=== PATIENT | female | born 1975 | race Caucasian/White ===

== ENCOUNTER 2016-10-22 09:47 | Outpatient (CLI) | payer BC ==
--- NOTE | 2016-10-22 12:12 | Mammography Report ---
BILATERAL MAMMOGRAM : HISTORY: Cancer screening. Comparison study is dated October 13, 2015. FINDINGS: The breast tissue is heterogeneously dense, which could obscure detection of small masses (approximately 50%-75% glandular). No mass, distortion, suspicious calcification, or skin change is seen. IMPRESSION: Negative mammogram. There is no mammographic evidence of malignancy. RECOMMENDATION: Follow-up per ACS guidelines. BI-RADS CATEGORY: 1 = Negative ACR BI-RADS MAMMOGRAPHIC CODES: 0 = Needs additional imaging evaluation; 1 = Negative; 2 = Benign; 3 = Probably benign; 4 = Suspicious; 5 = Malignant; 6 = Known biopsy-proven malignancy COMMENT: 1. Dense breast tissue, i.e., adenosis, fibrocystic changes, etc., may obscure an underlying neoplasm. 2. Approximately 10% of cancers are not detected with mammography. 3. A negative mammography report should not delay biopsy if a clinically suspicious mass is present. COMMENT: Patient follow-up letters are generated in [employer].
== END 2016-10-22 09:48 | disposition home or self-care (01) ==
LOC: MAMMO 09:47
PROVIDERS: ATTEND Obstetrics & Gynecology
DX: Z12.31 Encounter for screening mammogram for malignant neoplasm of breast (principal)
CPT/HCPCS: 77067; G0202

== ENCOUNTER 2016-12-20 11:03 | Emergency (ER) | payer BC ==
--- NOTE | 2016-12-20 11:37 | Emergency Department Report ---
Chief Complaint: Abdominal Pain Stated Complaint: ABD SWELLING /PAIN/VOMITTING/HEADACHE /BODY ACHE Time Seen by Provider: 12/20/16 11:29 - HPI History of Present Illness: 41-year-old female presents today for syncopal episode that occurred 2 days ago. The patient also complaining of abdominal pain and fullness 4 days. Complaining of general weakness, nausea, vomiting. Denies chest pain or shortness of breath. - ROS Review of Systems: Per HPI - Exam Vital Signs: Vital Signs 12/20/16 11:11 Temperature 98.4 F Pulse Rate 72 Respiratory 20 Rate Blood Pressure 135/81 O2 Sat by Pulse 100 Oximetry Physical Exam: General: A 41-year-old female in no acute distress. Well-developed, well- nourished. CV: Regular rate and rhythm. Lungs: Clear to auscultation bilaterally. Abdomen: No tenderness to palpation. No guarding or rebound tenderness. MSE screening note: Focused history and physical exam performed. Due to findings the following was ordered: ED Disposition for MSE Condition: Stable Instructions: Abdominal Pain (ED)
[2016-12-20 12:24] LABS: Basophils % (Auto) 0.7 % (0.0-1.8); Eosinophils % (Auto) 1.7 % (0.0-4.3); Hemoglobin 13.8 gm/dl (10.1-14.3); Mean Corpuscular HGB Conc 34 % (30-34); Mean Corpuscular Hemoglobin 30 pg (28-32); Mean Corpuscular Volume 90 fl (79-97); Platelet Count 247 K/mm3 (140-440); Red Blood Count 4.55 M/mm3 (3.65-5.03); Red Cell Distribution Width 13.5 % (13.2-15.2); White Blood Count 5.3 K/mm3 (4.5-11.0)
[2016-12-20 12:35] LABS: Amylase 58 units/L (27-131); Anion Gap 17 mmol/L; BUN/Creatinine Ratio 13.33; Blood Urea Nitrogen 8 mg/dL (7-17); Carbon Dioxide 25 mmol/L (22-30); Chloride 100.8 mmol/L (98-107); Glucose 100 mg/dL (65-100); Lipase 33 units/L (13-60); Potassium 4.2 mmol/L (3.6-5.0); Sodium 139 mmol/L (137-145)
[2016-12-20 16:53] LABS: Bilirubin,Urine NEG (Negative); Blood,Urine NEG (Negative); Ketones,Urine NEG (Negative); Leukocyte Esterase,Urine NEG (Negative); Mucus,Urine FEW /HPF; Nitrite,Urine NEG (Negative); Protein,Urine <15 mg/dL mg/dL (Negative)
[2016-12-20] MEDS ORDERED: NACL 0.9% 1000 ML 1,000 ML IV ONE (19:31)
[2016-12-20] MEDS ORDERED: ANTIVERT PO ONE (19:31)
[2016-12-20] MEDS ORDERED: ZOFRAN IV ONE (19:31)
--- NOTE | 2016-12-20 19:34 | Emergency Department Report ---
HPI - General Chief Complaint: Abdominal Pain Time Seen by Provider: 12/20/16 11:29 - HPI HPI: This is a 41-year-old female presents to the emergency department with complaint of upper abdominal pain, nausea and feeling "full" for the past 4 days. She also complains of a syncopal fall 2 days ago but she fell onto the couch and denies any trauma from that incident. She has some generalized dizziness that worsens when she is getting up to walk around. She denies any diarrhea or constipation but has not had a bowel movement in the past 2 days. She says that the discomfort is a burning sensation as well as some intermittent cramping. She is not taken anything for symptoms prior to presentation. No recent travel or sick contacts at home. She has a primary care doctor at a clinic but has not seen them regarding her symptoms. She has a surgical history of vaginal delivery 5 and a tubal ligation. ED Past Medical Hx - Past Medical History Additional medical history: Vaginal delivery x 5 - Surgical History Past Surgical History?: Yes Additional Surgical History: tubal ligation - Social History Smoking Status: Never Smoker Substance Use Type: Non Opiate Pain, Other - Medications Home Medications: Home Medications Medication Instructions Recorded Confirmed Last Taken Type Cefuroxime Axetil [Ceftin] 500 mg PO Q12H #20 tablet 01/20/14 Unknown Rx Ibuprofen [Motrin] 600 mg PO Q8H PRN #20 tablet 01/20/14 Unknown Rx Acetaminophen/Codeine [Tylenol #3] 1 tab PO Q6H PRN #20 tab 04/23/15 Unknown Rx Sulfamethoxazole/Trimethoprim 1 each PO BID #28 tablet 04/23/15 Unknown Rx [Bactrim DS TAB] metroNIDAZOLE [Flagyl] 500 mg PO BID #14 tablet 04/23/15 Unknown Rx Meclizine [Antivert] 12.5 mg PO BID PRN #16 tablet 12/20/16 Unknown Rx Ondansetron [Zofran Odt] 4 mg PO Q8HR PRN #10 tab.rapdis 12/20/16 Unknown Rx ED Review of Systems ROS: Stated complaint: ABD SWELLING /PAIN/VOMITTING/HEADACHE /BODY ACHE Other details as noted in HPI Comment: All other systems reviewed and negative Constitutional: denies: chills, fever Eyes: denies: eye pain, eye discharge, vision change ENT: denies: ear pain, throat pain Respiratory: denies: cough, shortness of breath, wheezing Cardiovascular: denies: chest pain, palpitations Gastrointestinal: abdominal pain, nausea Genitourinary: denies: urgency, dysuria, discharge Musculoskeletal: denies: back pain, joint swelling, arthralgia Skin: denies: rash, lesions Neurological: other (dizziness). denies: headache Physical Exam - Physical Exam Vital Signs: Vital Signs 12/20/16 11:11 Temperature 98.4 F Pulse Rate 72 Respiratory 20 Rate Blood Pressure 135/81 O2 Sat by Pulse 100 Oximetry Physical Exam: GENERAL: The patient is well-developed well-nourished. HEENT: Normocephalic. Atraumatic. Extraocular motions are intact. Patient has moist mucous membranes. Pupils equal reactive to light bilaterally. No nystagmus. Tongue is midline. NECK: Supple. Trachea is midline. CHEST/LUNGS: Clear to auscultation. There is no respiratory distress noted. HEART/CARDIOVASCULAR: Regular. There is no tachycardia. There is no gallop rub or murmur. ABDOMEN: Abdomen is soft, nontender. No guarding or rebound tenderness. Patient has normal bowel sounds. There is no abdominal distention. SKIN: There is no rash. There is no edema. There is no diaphoresis. NEURO: The patient is awake, alert, and oriented. The patient is cooperative. The patient has no focal neurologic deficits. The patient has normal speech and gait. Cranial nerves II through XII grossly intact. No pronator drift. No dysmetria. MUSCULOSKELETAL: There is no tenderness or deformity. There is no limitation range of motion. There is no evidence of acute injury. Muscle strength 5 out of 5 upper and lower extremity bilaterally. ED Course Vital Signs 12/20/16 11:11 Temperature 98.4 F Pulse Rate 72 Respiratory 20 Rate Blood Pressure 135/81 O2 Sat by Pulse 100 Oximetry ED Medical Decision Making - Lab Data Result diagrams: 12/20/16 12:05 12/20/16 12:05 - EKG Data -: EKG Interpreted by Me EKG shows normal: sinus rhythm, axis, intervals, QRS complexes, ST-T waves Rate: normal - EKG Data When compared to previous EKG there are: no significant change Interpretation: normal EKG, unchanged when compared t (09/25/12) - Radiology Data Radiology results: image reviewed interpreted by me: Chest x-ray did not show any acute process. Heart is normal shape and size. No effusions. No pneumothorax. No signs of pneumonia seen. X-ray of the abdomen shows some nonspecific nonobstructive bowel gas but otherwise no acute process. - Medical Decision Making 41-year-old female presents the emergency department with the complaints of some upper abdominal burning and some dizziness that appears to be a combination of vertigo and some near-syncope. However the dizziness and syncopal episode was 2 days ago. Patient's labs are unremarkable including no signs of infection in the blood or urine, electrolyte abnormalities, renal insufficiency or glucose abnormalities. She has normal belly labs. Negative troponin. EKG is normal without ST elevation TN, ischemia or dysrhythmia. Abdominal and chest x-rays did not show any acute process. Patient was given some IV fluid, Zofran for nausea and Antivert. Upon reevaluation she says she is feeling much better. She has good follow-up with primary care. She'll be discharged home with Zofran and Antivert. She will return to the ER with any worsening of her symptoms in any acute distress. - Differential Diagnosis vertigo, mi, colitis, gastritis, viral syndrome Critical Care Time: No Critical care attestation.: If time is entered above; I have spent that time in minutes in the direct care of this critically ill patient, excluding procedure time. ED Disposition Clinical Impression: Dizziness Abdominal pain Qualifiers: Abdominal location: upper abdomen, unspecified Qualified Code(s): R10.10 - Upper abdominal pain, unspecified Disposition: DISCHARGED TO HOME OR SELFCARE Is pt being admited?: No Condition: Good Instructions: Abdominal Pain (ED), Lightheadedness (ED), Dizziness (ED) Additional Instructions: Please follow-up with your primary care doctor in the next few days. Return to the emergency department with any worsening of your symptoms or any acute distress. Prescriptions: Meclizine [Antivert] 12.5 mg PO BID PRN #16 tablet PRN Reason: Vertigo Ondansetron [Zofran Odt] 4 mg PO Q8HR PRN #10 tab.rapdis PRN Reason: Nausea Referrals: PRIMARY CARE, [Primary Care Provider] - 3-5 Days Time of Disposition: 21:06
[2016-12-20 21:15] VITALS: BP 138/84
--- NOTE | 2016-12-21 09:20 | XRay Report ---
Abdominal series: History: Abdominal pain, syncope. Findings: Normal cardiomediastinal silhouette. No acute lung changes. No free intraperitoneal air. Stool in colon. No bowel distention or wall thickening. No radiopaque calculus or abnormal calcification. Essure device noted in the adnexa. Impression: Essentially negative abdomen.
== END 2016-12-20 21:52 | disposition home or self-care (01) ==
LOC: ED 11:03
DX: R10.10 Upper abdominal pain, unspecified (principal); R42 Dizziness and giddiness
CPT/HCPCS: 36415; 74022; 80048; 81001; 81025; 82150; 83690; 84484; 85025; 93005; 93010; 96361; 96374; 99284; J2405; J7030

== ENCOUNTER 2017-02-25 09:00 | Outpatient (CLI) | payer BC ==
--- NOTE | 2017-02-25 10:52 | Ultrasound Report ---
Left breast ultrasound: History: 2 weeks of left breast pain. Negative mammogram in October 2016. Imaging of the left breast in the area of concern ranging from the 12:00 to 3:00 positions shows no evidence of abnormal echo pattern or focal finding. Impression: Negative targeted left breast ultrasound. Recommendation: Clinical followup. Any additional evaluation at this time should be based on your concern. BI-RADS CATEGORY: 1 = Negative ACR BI-RADS MAMMOGRAPHIC CODES: 0 = Needs additional imaging evaluation; 1 = Negative; 2 = Benign; 3 = Probably benign; 4 = Suspicious; 5 = Malignant; 6 = Known biopsy-proven malignancy COMMENT: 1. Dense breast tissue, i.e., adenosis, fibrocystic changes, etc., may obscure an underlying neoplasm. 2. Approximately 10% of cancers are not detected with mammography. 3. A negative mammography report should not delay biopsy if a clinically suspicious mass is present.
== END 2017-02-25 09:01 | disposition home or self-care (01) ==
LOC: SPVWC 09:00
PROVIDERS: ATTEND Obstetrics & Gynecology
DX: N63 Unspecified lump in breast (principal)

== ENCOUNTER 2018-04-08 09:14 | Outpatient (CLI) | payer BC ==
--- NOTE | 2018-04-10 16:27 | Mammography Report ---
BILATERAL DIGITAL SCREENING MAMMOGRAM with CAD: 04/08/18 09:14:00 CLINICAL: Routine screening. COMPARISON:10/22/16 FINDINGS: The breasts are heterogeneously dense, which may obscure small masses. No mass, architectural distortion or suspicious calcifications. IMPRESSION: No mammographic evidence of malignancy. BI-RADS CATEGORY: 1 - - Negative RECOMMENDATION: Routine mammographic screening in one year. COMMENT: Patient follow-up letters are generated by our [employer] application.
== END 2018-04-08 09:15 | disposition home or self-care (01) ==
LOC: SPVWC 09:14
PROVIDERS: ATTEND Obstetrics & Gynecology
DX: Z12.31 Encounter for screening mammogram for malignant neoplasm of breast (principal)
CPT/HCPCS: 77067

== ENCOUNTER 2019-05-22 08:38 | Outpatient (CLI) | payer BC ==
--- NOTE | 2019-05-25 09:31 | Mammography Report ---
DIGITAL SCREENING MAMMOGRAM WITH CAD, 05/22/2019 INDICATION: Routine screening mammography. TECHNIQUE: Digital bilateral 2D mammography was obtained in the craniocaudal and mediolateral obliq ue projections. This examination was interpreted with the benefit of Computer-Aided Detection analysi s. COMPARISON: 10/22/2016 FINDINGS: Breast Density: The breasts are heterogeneously dense, which may obscure small masses. There is no evidence of dominant mass, suspicious calcifications or architectural distortion in eithe r breast. IMPRESSION: BI-RADS Category 1: Negative. No mammographic evidence of malignancy. Recommend routine screening m ammography in one year. A "normal" or negative report should not discourage follow up or biopsy of a clinically significant f inding. A written summary of these findings will be mailed to the patient. The patient will be entered into a mammography reporting system which will generate a reminder letter for the patient's next appointmen t at the appropriate interval. The [employer] recommends yearly mammograms starting at age 40 and continuing as l mariza as a woman is in good health. Breast MRI is recommended for women with an approximate 20-25% or greater lifetime risk of breast cancer, including women with a strong family history of breast or ova genie cancer or who have been treated for Hodgkin's disease. Signer Name: Mitch Squires MD Signed: 05/25/2019 9:27 AM Workstation Name: [id number]
== END 2019-05-22 08:39 | disposition home or self-care (01) ==
LOC: MAMMO 08:38
PROVIDERS: ATTEND Obstetrics & Gynecology
DX: Z12.31 Encounter for screening mammogram for malignant neoplasm of breast (principal)
CPT/HCPCS: 77067

== ENCOUNTER 2020-06-02 11:12 | Outpatient (CLI) | payer BC ==
--- NOTE | 2020-06-02 13:03 | Mammography Report ---
DIGITAL SCREENING MAMMOGRAM WITH CAD, 06/02/2020 INDICATION: Routine screening mammography. TECHNIQUE: Digital bilateral 2D mammography was obtained in the craniocaudal and mediolateral obliq ue projections. This examination was interpreted with the benefit of Computer-Aided Detection analysi s. COMPARISON: 05/22/2019, 04/08/2018 FINDINGS: Breast Density: The breasts are heterogeneously dense, which may obscure small masses. There is no evidence of dominant mass, suspicious calcifications or architectural distortion in eithe r breast. IMPRESSION: Follow up recommendation: Routine yearly BI-RADS Category 1: Negative. A "normal" or negative report should not discourage follow up or biopsy of a clinically significant f inding. A written summary of these findings will be mailed to the patient. The patient will be entered into a mammography reporting system which will generate a reminder letter for the patient's next appointmen t at the appropriate interval. The [employer] recommends yearly mammograms starting at age 40 and continuing as l mariza as a woman is in good health. Breast MRI is recommended for women with an approximate 20-25% or greater lifetime risk of breast cancer, including women with a strong family history of breast or ova genie cancer or who have been treated for Hodgkin's disease. Signer Name: Caden Alfred MD Signed: 06/02/2020 12:59 PM Workstation Name: [id number]
== END 2020-06-02 11:13 | disposition home or self-care (01) ==
LOC: MAMMO 11:12
PROVIDERS: ATTEND Obstetrics & Gynecology
DX: Z12.31 Encounter for screening mammogram for malignant neoplasm of breast (principal)
CPT/HCPCS: 77067

== ENCOUNTER 2021-07-04 13:55 | Outpatient (CLI) | payer BC ==
--- NOTE | 2021-07-04 15:59 | Mammography Report ---
DIGITAL SCREENING MAMMOGRAM WITH CAD, 07/04/2021 CLINICAL INFORMATION / INDICATION: Routine screening TECHNIQUE: Digital bilateral 2D mammography was obtained in the craniocaudal and mediolateral obliqu e projections. This examination was interpreted with the benefit of Computer-Aided Detection analysis . COMPARISON: 06/02/2020 FINDINGS: Breast Density: The breasts are heterogeneously dense, which may obscure small masses. No dominant mass, suspicious calcifications, or architectural distortion in either breast. IMPRESSION: No mammographic evidence of malignancy. Follow up recommendation: Routine yearly BI-RADS Category 1: Negative. A "normal" or negative report should not discourage follow up or biopsy of a clinically significant f inding. A written summary of these findings will be mailed to the patient. The patient will be entered into a mammography reporting system which will generate a reminder letter for the patient's next appointmen t at the appropriate interval. The [employer] recommends yearly mammograms starting at age 40 and continuing as l mariza as a woman is in good health. Breast MRI is recommended for women with an approximate 20-25% or greater lifetime risk of breast cancer, including women with a strong family history of breast or ova genie cancer or who have been treated for Hodgkin's disease. Signer Name: Mitch Squires MD Signed: 07/04/2021 3:54 PM Workstation Name: [id number]
== END 2021-07-04 13:56 | disposition home or self-care (01) ==
LOC: MAMMO 13:55
PROVIDERS: ATTEND Obstetrics & Gynecology
DX: Z12.31 Encounter for screening mammogram for malignant neoplasm of breast (principal)
CPT/HCPCS: 77067